=== PATIENT | female | born 1980 | race Caucasian/White ===

== ENCOUNTER 2020-11-18 13:26 | Inpatient (IN) | payer MEDICAID ==
[~2020-11-18] VITALS: Ht 162.6 cm; Wt 53.0 kg
[~2020-11-18 13:26] MED LIST: ASCO-96 PO; CHLO25CA9 PO; CYAN1TAB29 PO; FLUO20CA19 PO; LORA-445 PO; MELA3TAB31 PO; MINERAL PO; MULT-658 PO; OMEP-110 PO; THIA50TA2 PO; TOPI50TA35 PO
--- NOTE | 2020-11-18 14:07 | NUR ---
ASSUMED PT CARE, Pt ambulatory to room from lobby at this time.
--- NOTE | 2020-11-18 14:08 | NUR ---
SHERIDAN, ED PA AT BEDSIDE, PT ASSESSMENT, POC DISCUSSED AND QUESTIONS ANSWERED.
[2020-11-18] MEDS ORDERED: ONDANSETRON ODT 4 MG ONE (14:16)
[2020-11-18] MEDS ORDERED: THIAMINE 100MG TABLET ONE (14:16)
[2020-11-18] MEDS ORDERED: ONDANSETRON ODT 4 MG PO ONE (14:30)
[2020-11-18] MEDS ORDERED: THIAMINE 100MG TABLET PO ONE (14:30)
--- NOTE | 2020-11-18 14:53 | NUR ---
PT OOB AND AMBLATED TO BATHROOM, UPRIGHT STEADY GAIT. URINE SAMPLE COLLECTED. PT RTD TO ROOM W/O INCIDENT. CALL LIGHT W/I REACH
[2020-11-18 14:56] LABS: BASOPHILS % (AUTO) 1 % (0-1); EOSINOPHILS % (AUTO) 0 % (1-7); LYMPHOCYTES % (AUTO) 37 % (22-44); MEAN CORPUSCULAR HEMOGLOBIN 29.9 pg (27.0-34.8); MEAN CORPUSCULAR HGB CONC 33.8 g/dL (32.4-35.8); MEAN PLATELET VOLUME 8.3 fL (7.4-10.4); MONOCYTES % (AUTO) 5 % (2-9); NEUTROPHILS % (AUTO) 56 % (42-75); PLATELET COUNT 63 x10^3/uL (130-400); RED BLOOD COUNT 3.94 x10^6/uL (3.82-5.3); RED CELL DISTRIBUTION WIDTH 15.3 % (9.6-15.2)
[2020-11-18 15:09] LABS: MICROSCOPIC NOT IND
[2020-11-18 15:11] LABS: ALBUMIN 3.7 g/dL (3.4-5.0); ANION GAP 13 mmol/L (5-15); CALCIUM 8.6 mg/dL (8.5-10.1); CHLORIDE 88 mmol/L (98-107)
[2020-11-18 15:21] LABS: ALANINE AMINOTRANSFERASE 173 U/L (12-78); ALKALINE PHOSPHATASE 59 U/L (45-117); BILIRUBIN,TOTAL 1.5 mg/dL (0.2-1.0); CREATININE 0.49 mg/dL (0.55-1.02); TOTAL PROTEIN 7.1 g/dL (6.4-8.2)
--- NOTE | 2020-11-18 15:27 | NUR ---
ALL TEST RESULTED AND CHART UP FOR RECHECK. PT AWARE
--- NOTE | 2020-11-18 15:50 | NUR ---
DR BARRIOS AT BEDSIDE. PLAN FOR ADMIT DISCUSSED AND QUESTIONS ANSWERED.
[2020-11-18 15:55] LABS: CHLORIDE,URINE RANDOM 26 mmol/L; POTASSIUM,URINE RANDOM 11 mmol/L; SODIUM,URINE RANDOM 21 mmol/L
[2020-11-18] MEDS ORDERED: CHLORDIAZEPOXIDE 10 MG CAPSULE PO PRN (16:00)
[2020-11-18] MEDS ORDERED: ONDANSETRON ODT 4 MG PO PRN (16:30)
[2020-11-18] MEDS ORDERED: DOCUSATE 100 MG CAPSULE PO PRN (16:30)
[2020-11-18] MEDS ORDERED: LORazepam 1MG TABLET PO PRN ×4 (16:30)
[2020-11-18] MEDS ORDERED: LORazepam 2 MG/ML, 1ML IV PRN ×5 (16:30)
[2020-11-18] MEDS ORDERED: LABETALOL 5MG/ML, 20ML IVPush PRN (16:30)
[2020-11-18] MEDS ORDERED: POLYETHYLENE GLYCOL 17 GM PACKET PO PRN (16:30)
[2020-11-18] MEDS ORDERED: LORazepam 0.5MG TABLET PO PRN (16:30)
[2020-11-18] MEDS ORDERED: ACETAMINOPHEN 325 MG TABLET PO PRN (16:30)
[2020-11-18] MEDS ORDERED: CHLORDIAZEPOXIDE 10 MG CAPSULE ONE (16:33)
[2020-11-18] MEDS ORDERED: DEXTROSE 4 GM TAB.CHEW PO PRN (17:00)
[2020-11-18] MEDS ORDERED: DEXTROSE 50%, 50ML SYRINGE IVPush PRN (17:00)
[2020-11-18] MEDS ORDERED: GLUCAGON 1 MG IM PRN (17:00)
--- NOTE | 2020-11-18 17:19 | NUR ---
BREAK RN: MED REQUESTED FROM PHARMACY.
[2020-11-18] MEDS ORDERED: POTASSIUM CHLORIDE 20 MEQ, MAGNESIUM SULFATE 2 GM, THIAMINE 200 MG, MVI ADULT 10 ML, FO... IV SCH (18:00)
[2020-11-18] MEDS ORDERED: MAGNESIUM SULFATE PMX 2GM/50ML 50 ML IV ONE (18:00)
--- NOTE | 2020-11-18 18:13 | NUR ---
PT OOB AND AMBULATED TO BATHROOM UPRIGHT STEADY GAIT. RTD TO ROOM W/O INCIDENT. ALL ONITORS PLACED AND IVF INFUSING ORDERED. NAD NOTED AND PT RPTS "FEELING BETTER"
[2020-11-18] MEDS ORDERED: MAGNESIUM SULFATE/D5W 0 ML ONE (18:23)
[2020-11-18] MEDS ORDERED: MAGNESIUM SULFATE PMX 2GM/50ML 50 ML ONE (18:44)
[2020-11-18 19:40] VITALS: BP 114/61
[2020-11-18] MEDS: SODIUM CHLORIDE FLUSH 10ML SYR IVF SCH (21:00)
[2020-11-18 21:46] VITALS: BP 128/68
[2020-11-19 00:03] VITALS: BP 122/76
[2020-11-19] MEDS ORDERED: TEMAZEPAM 15 MG CAPSULE PO ONE ×2 (01:00→23:00)
[2020-11-19 04:37] LABS: MEAN CORPUSCULAR HEMOGLOBIN 30.2 pg (27.0-34.8); MEAN CORPUSCULAR HGB CONC 34.1 g/dL (32.4-35.8); MEAN PLATELET VOLUME 8.9 fL (7.4-10.4); PLATELET COUNT 57 x10^3/uL (130-400); RED BLOOD COUNT 4.02 x10^6/uL (3.82-5.3); RED CELL DISTRIBUTION WIDTH 15.2 % (9.6-15.2)
[2020-11-19 04:51] LABS: INTERNATIONAL NORMALIZED RATIO 1.02 (0.93-1.1); PROTHROMBIN TIME 10.9 Seconds (9.6-11.5)
[2020-11-19 04:52] LABS: ALBUMIN 3.4 g/dL (3.4-5.0); CALCIUM 8.3 mg/dL (8.5-10.1)
[2020-11-19 04:57] LABS: ALANINE AMINOTRANSFERASE 141 U/L (12-78); ALKALINE PHOSPHATASE 58 U/L (45-117); BILIRUBIN, DIRECT 0.4 mg/dL (0.1-0.2); BILIRUBIN,INDIRECT 0.7 mg/dL (0.0-2.0); BILIRUBIN,TOTAL 1.1 mg/dL (0.2-1.0); TOTAL PROTEIN 6.7 g/dL (6.4-8.2)
[2020-11-19 05:02] LABS: ANION GAP 4 mmol/L (5-15); CHLORIDE 100 mmol/L (98-107)
[2020-11-19 05:55] LABS: BASOS#(MANUAL) 0.04 x10^3/uL (0-0.1); BASOS% (MANUAL) 1 % (0-1); EOS#(MANUAL) 0.04 x10^3/uL (0.0-0.4); EOS% (MANUAL) 1 % (1-7); LYMPH#(MANUAL) 2.24 x10^3/uL (1-3.4); LYMPHS% (MANUAL) 64 % (22-44); MONOS#(MANUAL) 0.07 x10^3/uL (0.3-2.7); MONOS% (MANUAL) 2 % (2-9); REACTIVE LYMPHS # (MANUAL) 0.07 x10^3/uL (0-0); REACTIVE LYMPHS % (MANUAL) 2 % (0-0); SEG#(MANUAL) 1.05 x10^3/uL (1.8-6.8); SEGS% (MANUAL) 30 % (42-75)
[2020-11-19 05:56] LABS: <PLATELET ESTIMATE> DECREASED; <PLT MORPHOLOGY> NORMAL PLT MORPH; <RBC MORPHOLOGY> NORMAL
[2020-11-19 07:16] VITALS: BP 111/74
[2020-11-19] MEDS ORDERED: POTASSIUM PHOSPHATE 22 MEQ in SODIUM CHLORIDE 0.9% 500 ML IV ONE (07:30)
[2020-11-19] MEDS: SODIUM CHLORIDE FLUSH 10ML SYR IVF SCH ×2 (08:54→20:35)
[2020-11-19] MEDS: MULTIVITAMINS/MINERALS TABLET PO SCH (08:54)
[2020-11-19] MEDS: FOLIC ACID 1 MG TABLET PO SCH (08:54)
[2020-11-19] MEDS ORDERED: THIAMINE 100 MG in DEXTROSE 5% 50 ML IVPB SCH (09:00)
[2020-11-19 12:23] VITALS: BP 125/86
[2020-11-19 19:21] VITALS: BP 120/78
[2020-11-20 00:50] VITALS: BP 113/77
[2020-11-20 06:56] VITALS: BP 108/66
[2020-11-20] MEDS ORDERED: THIA100T67 PO (08:12)
[2020-11-20] MEDS ORDERED: MULT-484 PO (08:12)
[2020-11-20] MEDS ORDERED: FOLI1TAB32 PO (08:12)
[2020-11-20] MEDS: FOLIC ACID 1 MG TABLET PO SCH (08:23)
[2020-11-20] MEDS: SODIUM CHLORIDE FLUSH 10ML SYR IVF SCH (08:23)
[2020-11-20] MEDS: MULTIVITAMINS/MINERALS TABLET PO SCH (08:23)
[2020-11-20] MEDS ORDERED: THIAMINE 100MG TABLET PO SCH (09:00)
== END 2020-11-20 10:32 | disposition home or self-care (01) | DRG 641 ==
LOC: ED 14:25 → EDIP 15:41 → SUATTDRO 15:54 → 4WST 19:20
PROVIDERS: ADMIT Internal Medicine; ATTEND Internal Medicine
DX: E87.1 Hypo-osmolality and hyponatremia (principal); F10.239 Alcohol dependence with withdrawal, unspecified; D69.6 Thrombocytopenia, unspecified; D64.9 Anemia, unspecified; D72.819 Decreased white blood cell count, unspecified; E16.2 Hypoglycemia, unspecified; K76.0 Fatty (change of) liver, not elsewhere classified; R56.9 Unspecified convulsions
CPT/HCPCS: 36415; 96374; 99285; J7042; 71045; 76705; 80048; 80053; 80076; 81003; 82436; 83735; 83935; 84100; 84133; 84300; 84703; 85025; 85610; 85730; 93005; G0378; J3411; J3475; J3480; Q0162; J7040

== ENCOUNTER 2021-01-01 18:26 | Emergency (ER) | payer MEDICAID, OTHER ==
[~2021-01-01] VITALS: Ht 162.6 cm; Wt 53.0 kg
[~2021-01-01 18:26] MED LIST changes: +FOLI1TAB32 PO; +MULT-484 PO; +THIA100T67 PO
--- NOTE | 2021-01-01 19:44 | NUR ---
patient ambulated independently without assistance. VSS. Alert and oriented times 4.
--- NOTE | 2021-01-01 20:24 | NUR ---
PT GIVEN WATER, SPRITE, AND CRACKERS. PT TOOK OFF ALL OMONITORS. PT REATTCAHED TO MONITORS. VSS. GRIMM.
[2021-01-01 21:20] VITALS: BP 149/94
== END 2021-01-01 21:23 | disposition home or self-care (01) ==
LOC: ED 18:35
DX: S52.502A Unspecified fracture of the lower end of left radius, initial encounter for closed fracture (principal); W01.0XXA Fall on same level from slipping, tripping and stumbling without subsequent striking against object, initial encounter; Y93.89 Activity, other specified; Y92.89 Other specified places as the place of occurrence of the external cause; Y99.8 Other external cause status
CPT/HCPCS: 29125; 99283